=== PATIENT | male | born 1975 | race Caucasian/White ===

== ENCOUNTER 2017-09-08 11:50 | Emergency (ER) | payer OTHER ==
[~2017-09-08] VITALS: Ht 188 cm; Wt 167.8 kg
--- NOTE | 2017-09-08 12:10 | ED GENERAL ADULT ---
History of Present Illness General Chief Complaint: ETOH/Drug Related Complaint Stated Complaint: SENT BY [facility] FOR DETOX Source: patient Exam Limitations: no limitations Vital Signs & Intake/Output Vital Signs & Intake/Output Vital Signs Date Time Temp Pulse Resp B/P B/P Pulse O2 O2 Flow FiO2 Mean Ox Delivery Rate 09/08 1332 98.1 80 16 148/92 98 Room Air 09/08 1329 98.1 80 16 148/92 09/08 1242 Room Air 09/08 1158 98.3 67 20 153/99 99 Allergies Coded Allergies: No Known Allergies (09/08/17) Reconcile Medications Allopurinol 300 MG TABLET 1 TAB PO DAILY GOUT (Reported) Metformin HCl 500 MG TABLET 1 TAB PO BID DIABETES (Reported) Triage Note: PT TO ED FOR CLEARANCE FOR HIGHWATCH, REPORTING HE HAS BEEN DRINKING 24-30 BEERS NIGHTLY X 30 YEARS. LAST DRINK TUESDAY AM AROUND 12:30 AM. DENIES ANY HX OF DETOX, STATING HE HAS NOT STOPPED DRINKING "IN MANY MANY YEARS." Triage Nurses Notes Reviewed? yes Onset: Gradual Duration: 30 YEARS Timing: recent history Injury Environment: home Severity: severe Severity Numbers: 10 No Modifying Factors: none HPI: Patient is a 41-year-old male with history of alcohol abuse. Has been drinking 24 beers" a few shots" nightly for the past 30 years. Denies any drug use. Last drink was approximately one and half days ago. Patient reports that he feels anxious when he stops drinking. Denies any history of withdrawal seizures. Denies any current abdominal pain nausea vomiting fevers or chills chest pain or shortness of breath. He was sent in here for evaluation and clearance so he can be discharged to the detox facility. Denies any suicidal or homicidal ideation. (Edita Carrizales) Past History Travel History Traveled to [place] past 21 day No Medical History Any Pertinent Medical History? see below for history Neurological: NONE EENT: NONE Cardiovascular: NONE Respiratory: NONE Gastrointestinal: NONE Hepatic: NONE Renal: NONE Musculoskeletal: NONE Psychiatric: NONE Endocrine: diabetes, GOUT Blood Disorders: NONE Cancer(s): NONE Surgical History Surgical History: non-contributory Psychosocial History What is your primary language Malagasy Tobacco Use: Current Daily Use Daily Tobacco Use Amount/Type: => 5 Cigarettes daily ETOH Use: alcoholic Illicit Drug Use: denies illicit drug use Family History Hx Contributory? No (Edita Carrizales) Review of Systems Review of Systems Constitutional: Reports: no symptoms. Comments Review of systems: See HPI, All other systems negative. Constitutional, no chills fever or weight loss HEENT: No visual changes no sore throat no congestion Cardiovascular: No chest pain ,palpitation , orthopnea or ankle swelling Skin, no jaundice no rashes Respiratory: No dyspnea cough sputum or hemoptysis GI: No nausea no vomiting : No dysuria No hematuria Muscle skeletal: no back pain, no neck pain, Neurologic: No numbness no confusion Psych: No depression,. Heme/endocrine: No bruising no bleeding no polyuria or polydipsia Immunology: No splenectomy or history of AIDS (Edita Carrizales) Physical Exam Physical Exam General Appearance: well developed/nourished, no apparent distress, alert, awake , comfortable Comments: Well-developed well-nourished person in no acute distress HEENT: Normal atraumatic, normocephalic Neck: NORMAL INSPECTION Back: Nontender, no CVA tenderness. Full range of motion Cardiovascular: Regular rate and rhythms no murmurs rubs or gallops, normal JVP Respiratory: Chest nontender. No respiratory distress.breath sounds clear to auscultation bilaterally Abdomen: Soft, obese nontender nondistended, no appreciable organomegaly. Normal bowel sounds. Extremity: No edema Neuro: Alert oriented x3 Skin: No appreciable rash on exposed skin, skin is warm and dry. Psych: Mood and affect is normal, memory and judgment is normal. Core Measures ACS in differential dx? No CVA/TIA Diagnosis: No Sepsis Present: No Sepsis Focused Exam Completed? No (Edita Carrizales) Progress Differential Diagnoses I considered the following diagnoses in my evaluation of the patient: Alcohol dependence, alcohol withdrawal, polysubstance abuse, electrolyte abnormality Plan of Care: Orders Procedure Date/time Status CIWA 09/08 1158 Active URINE DRUG SCREEN FOR ER ONLY 09/08 1158 Complete LIPASE 09/08 1158 Complete ETHANOL 09/08 1158 Complete COMPREHENSIVE METABOLIC PANEL 09/08 1158 Complete CBC WITHOUT DIFFERENTIAL 09/08 1158 Complete Laboratory Tests 09/08/17 1240: Anion Gap 17 H, Estimated GFR > 60, BUN/Creatinine Ratio 21.4, Glucose 116 H, Calcium 9.5, Total Bilirubin 0.6, AST 20, ALT 32, Alkaline Phosphatase 107, Total Protein 7.4, Albumin 4.3, Globulin 3.1, Albumin/Globulin Ratio 1.4, Lipase 126, CBC w Diff NO MAN DIFF REQ, RBC 5.01, MCV 83.4, MCH 28.6, RDW 14.9 H, MPV 7.7, Gran % 67.3, Lymphocytes % 23.3, Monocytes % 6.9, Eosinophils % 1.0, Basophils % 1.5, Absolute Granulocytes 7.5 H, Absolute Lymphocytes 2.6, Absolute Monocytes 0.8 H, Absolute Eosinophils 0.1, Absolute Basophils 0.2, PUBS MCHC 34.3, Serum Alcohol < 10.0 09/08/17 1230: Urine Opiates Screen < 100.00, Methadone Screen < 40, Barbiturate Screen < 60, Ur Phencyclidine Scrn < 6.00, Amphetamines Screen < 100, U Benzodiazepines Scrn < 85, Urine Cocaine Screen < 50, Urine Cannabis Screen < 5.00 Initial ED EKG: none Comments: CIWA score is 0. Patient will be discharged to [facility]. Alcohol level currently 0. Patient has a ride. PT nontoxic. Discussed with and he agrees to plan. (Edita Carrizales) Departure Departure Time of Disposition: 1332 Disposition: HOME OR SELF CARE Condition: Stable Clinical Impression Primary Impression: Alcohol dependence Qualifiers: Substance use status: uncomplicated Qualified Code: F10.20 - Alcohol dependence, uncomplicated Secondary Impressions: Alcohol withdrawal Qualifiers: Complication of substance-induced condition: uncomplicated Qualified Code: F10.230 - Alcohol dependence with withdrawal, uncomplicated Referrals: Andrés BARNETT,Kalyan Hall (PCP/Family) Additional Instructions: Report directly to [facility] for admission for alcohol detox. Return for worsening symptoms or concerns. Departure Forms: Customer Survey General Discharge Information (Edita Carrizales) PA/AD TRAFFICKER Co-Sign Statement Statement: ED Attending supervision documentation- [] I saw and evaluated the patient. I have also reviewed all the pertinent lab results and diagnostic results. I agree with the findings and the plan of care as documented in the PA's/AD TRAFFICKER's documentation. [X] I have reviewed the ED Record and agree with the PA's/AD TRAFFICKER's documentation. [] Additions or exceptions (if any) to the PAs/AD TRAFFICKER's note and plan are summarized below: [] (Jim TRONCOSO,Omid Love) Critical Care Note Critical Care Note Critical Care Time: non-applicable (Shaniqua CERRATO,Edita)
[2017-09-08] MEDS ORDERED: ALLOPURINOL300 M1 PO (12:27)
[2017-09-08] MEDS ORDERED: METFORMIN HCL500 M3 PO (12:28)
[2017-09-08 12:56] LABS: ABSOLUTE BASOPHIL COUNT 0.2 /CUMM (0.0-0.2); ABSOLUTE EOSINOPHIL COUNT 0.1 /CUMM (0.0-0.7); ABSOLUTE GRANULOCYTE CT 7.5 /CUMM (1.4-6.5); ABSOLUTE LYMPH COUNT 2.6 /CUMM (1.2-3.4); ABSOLUTE MONOCYTE COUNT 0.8 /CUMM (0.10-0.60); BASOPHIL % 1.5 % (0.0-2.0); GRANULOCYTE % 67.3 % (42.2-75.2); HEMATOCRIT 41.8 % (42-52); MEAN CORPUSCULAR HGB 28.6 PG (27.0-31.0); MEAN CORPUSCULAR HGB CONC 34.3 G/DL (33.0-37.0); MEAN CORPUSCULAR VOLUME 83.4 FL (80.0-94.0); MEAN PLATELET VOLUME 7.7 FL (7.4-10.4); PLATELET COUNT 273 /CUMM (130-400); RBC DISTRIBUTION WIDTH 14.9 % (11.5-14.5); RED BLOOD CELL CT 5.01 /CUMM (4.70-6.10); WHITE BLOOD CELL COUNT 11.1 /CUMM (4.8-10.8)
== END 2017-09-08 14:20 ==
LOC: ERH 11:50
PROVIDERS: Physician Assistant
DX: F10.239 Alcohol dependence with withdrawal, unspecified (principal)
CPT/HCPCS: 80307; G0480